=== PATIENT | male | born 1985 | race African-American/Black ===

== ENCOUNTER 2017-12-22 11:30 | Emergency (ER) | payer OTHER ==
[2017-12-22] MEDS ORDERED: OXYCODONE-ACETAMINOPHEN 5-325 MG TABLET PO ONE (12:24)
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
[2017-12-22 14:18] VITALS: BP 147/82
== END 2017-12-22 14:17 | disposition home or self-care (01) ==
LOC: ER 11:30
DX: S39.012A Strain of muscle, fascia and tendon of lower back, initial encounter (principal); V49.50XA Passenger injured in collision with unspecified motor vehicles in traffic accident, initial encounter; R03.0 Elevated blood-pressure reading, without diagnosis of hypertension; M54.89 Other dorsalgia; F17.200 Nicotine dependence, unspecified, uncomplicated
CPT/HCPCS: 72070; 72110; 99284